=== PATIENT | female | born 1995 | race American Indian/Alaskan Native ===

== ENCOUNTER 2018-11-09 09:41 | Emergency (ER) | payer SELFPAY ==
[2018-11-09 10:19] VITALS: BP 120/74
[2018-11-09] MEDS ORDERED: IBUPROFEN PO ONE (11:16)
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
--- NOTE | 2018-11-09 12:44 | Vascular Lab Report ---
PROCEDURE: VL VENOUS DUPLEX LE RT TECHNIQUE: Grayscale and color and spectral doppler ultrasound imaging of the right lower extremity extremity venous system was performed. HISTORY: pain R LE COMPARISONS: None. FINDINGS: There is normal compression and color flow within the right lower extremity venous system. Normal aug mentation was seen. Incidentally the left common femoral vein is patent. Arterial waveforms are seen within the right distal posterior tibial artery. IMPRESSION: Negative for right lower extremity DVT. This document is electronically signed by Gabbie Garsia., Nov 09 2018 12:41:57 PM ET
== END 2018-11-09 12:52 | disposition home or self-care (01) ==
LOC: ED 09:41
DX: G89.29 Other chronic pain (principal); M25.561 Pain in right knee; Z90.89 Acquired absence of other organs

== ENCOUNTER 2019-01-04 12:54 | Emergency (ER) | payer OTHER ==
--- NOTE | 2019-01-04 13:41 | Event Note ---
ED Screening Note ED Screening Note: pt present with right knee pain that began a month ago states she has had knee effusions before pain with ambulation no fall or injury was here a month ago for leg pain had a normal US This initial assessment/diagnostic orders/clinical plan/treatment(s) is/are subject to change based on patients health status, clinical progression and re- assessment by fellow clinical providers in the ED. Further treatment and workup at subsequent clinical providers discretion. Patient/guardian urged not to elope from the ED as their condition may be serious if not clinically assessed and managed. Initial orders include: XR knee right
[2019-01-04 13:43] VITALS: BP 114/63
--- NOTE | 2019-01-04 14:26 | XRay Report ---
Right knee 3 views INDICATION / CLINICAL INFORMATION: right knee pain. COMPARISON: None available. FINDINGS: BONES/JOINT(S): No acute fracture or subluxation. No significant degenerative changes. No aggressive appearing bone lesions identified. SOFT TISSUES: No significant abnormality. ADDITIONAL FINDINGS: None. Signer Name: Lloyd Baires MD Signed: 01/04/2019 2:21 PM Workstation Name: [id number]
--- NOTE | 2019-01-04 14:46 | Emergency Department Report ---
ED Extremity Problem HPI - General Chief complaint: Extremity Problem,Nontraumatic Stated complaint: RT KNEE PAIN Time Seen by Provider: 01/04/19 13:40 Source: patient Mode of arrival: Ambulatory Limitations: No Limitations - History of Present Illness Initial comments: 23-year-old female comes in chronic right knee pain. Patient reports the pain is worse when she stands for long. Sometimes better when she rested. Patient denies any trauma to her right knee. He has not taken anything for pain. She reports she had a history of right knee infusion in the past. Currently has no allergies other concerns at this time. MD Complaint: extremity pain Onset/Timin -: month(s) Location: right, knee History of Same: Yes -: Yes arthralgia Quality: aching Consistency: intermittent Improves with: rest Worsens with: weight bearing, walking - Related Data Previous Rx's Medication Instructions Recorded Last Taken Type Ibuprofen [Ibu] 800 mg PO Q8H PRN #20 tablet 11/09/18 Unknown Rx methOCARBAMOL [Robaxin TAB] 500 mg PO Q6H PRN #14 tablet 11/09/18 Unknown Rx Ibuprofen [Motrin 600 MG tab] 600 mg PO Q8H PRN #30 tablet 01/04/19 Unknown Rx Allergies Allergy/AdvReac Type Severity Reaction Status Date / Time No Known Allergies Allergy Unverified 11/09/18 09:53 ED Review of Systems ROS: Stated complaint: RT KNEE PAIN Other details as noted in HPI Comment: All other systems reviewed and negative ED Past Medical Hx - Past Medical History Previous Medical History?: No - Surgical History Past Surgical History?: Yes Hx Appendectomy: Yes - Social History Smoking Status: Never Smoker Substance Use Type: Alcohol, Marijuana - Medications Home Medications: Home Medications Medication Instructions Recorded Confirmed Last Taken Type Ibuprofen [Ibu] 800 mg PO Q8H PRN #20 tablet 11/09/18 Unknown Rx methOCARBAMOL [Robaxin TAB] 500 mg PO Q6H PRN #14 tablet 11/09/18 Unknown Rx Ibuprofen [Motrin 600 MG tab] 600 mg PO Q8H PRN #30 tablet 01/04/19 Unknown Rx ED Physical Exam - General Limitations: No Limitations General appearance: alert, in no apparent distress - Head Head exam: Present: atraumatic, normocephalic - Expanded Lower Extremity Exam Right Hip exam: Present: normal inspection, full ROM Upper Leg exam: Present: normal inspection, full ROM Knee exam: Present: full ROM, tenderness. Absent: swelling Lower Leg exam: Present: normal inspection, full ROM Ankle exam: Present: normal inspection, full ROM Foot/Toe exam: Present: normal inspection, full ROM - Back Exam Back exam: Present: normal inspection - Neurological Exam Neurological exam: Present: alert, oriented X3 - Psychiatric Psychiatric exam: Present: normal affect, normal mood - Skin Skin exam: Present: warm, dry, intact, normal color. Absent: rash ED Course Vital Signs 01/04/19 13:40 Temperature 98.3 F Pulse Rate 56 L Respiratory 18 Rate Blood Pressure 114/63 O2 Sat by Pulse 100 Oximetry ED Medical Decision Making - Radiology Data Radiology results: report reviewed Patient: SHEILA WEIR MR#: [id number] : 1995 Acct:[id number] Age/Sex: 23 / F ADM Date: 01/04/19 Loc: ED Attending Dr: Ordering Physician: ZAINAB ROY Date of Service: 01/04/19 Procedure(s): XR knee 3V RT Accession Number(s): [id number] cc: ZAINAB ROY Fluoro Time In Minutes: Right knee 3 views INDICATION / CLINICAL INFORMATION: right knee pain. COMPARISON: None available. FINDINGS: BONES/JOINT(S): No acute fracture or subluxation. No significant degenerative changes. No aggressive appearing bone lesions identified. SOFT TISSUES: No significant abnormality. ADDITIONAL FINDINGS: None. Signer Name: Lloyd Baires MD Signed: 01/04/2019 2:21 PM Workstation Name: [id number] - Medical Decision Making 23-year-old female comes in her chronic right knee pain. Patient be given a Toradol injection. X-ray of right knee was ordered in triage shows normal examination. Patient will be discharged home with a prescription for ibuprofen and referral to Dr. Evans orthopedic provider. Critical care attestation.: If time is entered above; I have spent that time in minutes in the direct care of this critically ill patient, excluding procedure time. ED Disposition Clinical Impression: Knee pain, chronic Qualifiers: Laterality: right Qualified Code(s): M25.561 - Pain in right knee Disposition: DC-01 TO HOME OR SELFCARE Is pt being admited?: No Does the pt Need Aspirin: No Condition: Stable Instructions: Arthralgia (ED) Additional Instructions: Take pain medication as needed. Follow-up with orthopedic provider I have listed their information below for your convenience. Prescriptions: Ibuprofen [Motrin 600 MG tab] 600 mg PO Q8H PRN #30 tablet PRN Reason: Pain Referrals: ARIANNA EVANS MD [Staff Physician] - 3-5 Days Forms: Work/School Release Form(ED)
[2019-01-04] MEDS ORDERED: TORADOL ONE (15:20)
[2019-01-04] MEDS ORDERED: TORADOL IM ONE (15:22)
== END 2019-01-04 15:28 | disposition home or self-care (01) ==
LOC: ED 12:54
DX: G89.29 Other chronic pain (principal); M25.561 Pain in right knee; F12.90 Cannabis use, unspecified, uncomplicated; Z79.899 Other long term (current) drug therapy; Z90.49 Acquired absence of other specified parts of digestive tract
CPT/HCPCS: 73562; 96372; 99283; J1885